=== PATIENT | female | born 2000 ===

== ENCOUNTER 2023-03-17 15:36 | Emergency (ER) | payer MEDICAID ==
--- NOTE | 2023-03-17 16:06 | NUR ---
not in lobby x3
== END 2023-03-17 16:07 | disposition left against medical advice (07) ==
LOC: ER 15:38
DX: R10.9 Unspecified abdominal pain (principal); Z53.21 Procedure and treatment not carried out due to patient leaving prior to being seen by health care provider
CPT/HCPCS: 99281